=== PATIENT | female | born 1950 | race Caucasian/White ===

== ENCOUNTER 2019-08-20 18:44 | Emergency (ER) | payer MEDICARE, OTHER ==
[~2019-08-20] VITALS: Wt 58.6 kg
[2019-08-20 18:50] VITALS: TEMP 97.7
[2019-08-20 19:56] LABS: ALANINE AMINOTRANSFERASE 6 U/L (9-52); ALBUMIN 4.5 gm/dL (3.5-5.0); ALKALINE PHOSPHATASE 67 U/L (50-136); ANION GAP 10 mmol/L (7-16); AST,SGOT 22 U/L (15-37); BILIRUBIN,TOTAL 0.3 mg/dL (0.0-1.0); BLOOD UREA NITROGEN 15 mg/dL (7-17); CARBON DIOXIDE 27 mmol/L (22-30); CHLORIDE 105 mmol/L (98-107); CREATININE, serum 0.56 (0.52-1.25); GLUCOSE 136 mg/dL (74-106); POTASSIUM 3.5 mmol/L (3.4-5.0); SODIUM 142 mmol/L (137-145); TOTAL PROTEIN 8.1 gm/dL (6.4-8.2)
[2019-08-20 20:08] LABS: TROPONIN-I < 0.012 ng/mL (0.000-0.035)
[2019-08-20 20:28] LABS: PROTHROMBIN TIME 11.3 SECONDS (9.7-12.8)
[2019-08-20 20:32] LABS: BASO # 0.1 (0.0-0.2); BASO % 0.6 % (0.0-2.0); EOS # 0.2 (0.0-0.7); EOS % 1.8 % (0-4.0); GRAN # 6.2 (1.4-6.5); GRAN % 60.4 % (42.2-75.2); HEMATOCRIT 44.8 % (37.0-47.0); HEMOGLOBIN 14.7 g/dl (12.5-16.0); LYMPH # 3.2 (1.2-3.4); LYMPH % 30.9 % (20.0-51.0); MEAN CELL VOLUME 86 fl (80.0-100.0); MEAN CORPUSCULAR HEMOGLOBIN 28 pg (27.0-31.0); MEAN CORPUSCULAR HGB CONC 33 g/dl (33.0-37.0); MEAN PLATELET VOLUME 10.8 fl (7.4-10.4); MONO # 0.6 (0.1-0.6); PLATELET COUNT 289 K/mm3 (130-400); RED BLOOD COUNT 5.21 M/mm3 (4.10-5.30); REDCELL DISTRIBUTION WIDTH-CV 12.9 % (11.5-14.5)
[2019-08-20 20:34] LABS: D-DIMER < 200.00 ng/mLDDu (200-230)
[2019-08-20 21:03] VITALS: BP 155/85; PULSE 72
== END 2019-08-20 21:04 | disposition home or self-care (01) ==
LOC: COL.ER 18:44
PROVIDERS: Emergency Medicine
DX: J44.9 Chronic obstructive pulmonary disease, unspecified (principal); R60.9 Edema, unspecified; I10 Essential (primary) hypertension